=== PATIENT | female | born 1960 | race Caucasian/White ===

== ENCOUNTER 2018-08-19 15:53 | Emergency (ER) | payer SELFPAY ==
[~2018-08-19] VITALS: Ht 167.6 cm; Wt 51.6 kg
[2018-08-19 15:58] VITALS: BP 182/88; PULSE 62; RESP 20; Ht 167.6 cm; Wt 51.6 kg
[2018-08-19] MEDS ORDERED: predniSONE 20 MG TAB PO ONE (18:30)
[2018-08-19] MEDS ORDERED: KETOROLAC 30 MG INJ IM STA (18:30)
--- NOTE | 2018-08-19 18:32 | ERD ---
ER Documentation Chief Complaint Chief Complaint Complains of left hip pain radiates to the left leg HPI 58-year-old female with history of lower back pain, presents to the emergency department, complaining of acute exacerbation of the back pain with radiation to the left lower extremity for 5 days. The patient denies any trauma. The pain is dull, constant, worsened by flexion and lateral rotation. The patient has been taking Tylenol with mild improvement of the symptoms. She denies dizziness, weakness, no numbness or tingling. ROS All systems reviewed and are negative except as per history of present illness. Medications Home Meds Active Scripts Ibuprofen* (Motrin*) 400 Mg Tab, 400 MG PO Q8, #15 TAB Prov:LISA HOOKER MD 08/19/18 Baclofen* (Baclofen*) 10 Mg Tablet, 10 MG PO TID, #15 TAB Prov:LISA HOOKER MD 08/19/18 Prednisone* (Prednisone*) 20 Mg Tab, 60 MG PO DAILY for 4 Days, TAB Prov:LISA HOOKER MD 08/19/18 Allergies Allergies: Coded Allergies: No Known Allergy (Unverified , 08/19/18) FmHx Family History: diabetes; No coronary disease Physical Exam Vitals Vital Signs Date Temp Pulse Resp B/P (MAP) Pulse Ox O2 O2 Flow FiO2 Time Delivery Rate 08/19/18 98.3 62 20 182/88 98 15:58 (119) Physical Exam Const: No acute distress Head: Atraumatic Eyes: Normal Conjunctiva ENT: Normal External Ears, Nose and Mouth. Neck: Full range of motion. No meningismus. Resp: Clear to auscultation bilaterally Cardio: Regular rate and rhythm, no murmurs Abd: Soft, non tender, non distended. Normal bowel sounds Skin: No petechiae or rashes Back: Normal inspection, no vertebral tenderness, bilateral lumbar muscle spasm. Decreased range of motion for lateral rotation and flexion due to pain. Ext: No cyanosis, or edema Neur: Awake and alert Psych: Normal Mood and Affect Results 24 hrs Laboratory Tests Test 08/19/18 18:49 Bedside Urine pH (LAB) 6.5 Bedside Urine Protein (LAB) Negative Bedside Urine Glucose (UA) Negative Bedside Urine Ketones (LAB) Negative Bedside Urine Blood Trace-intact Bedside Urine Nitrite (LAB) Negative Bedside Urine Leukocyte Esterase (L Negative Current Medications Medications Dose Sig/Seb Start Time Status Last (Trade) Ordered Route PRN Stop Time Admin Dose Reason Admin Ketorolac 30 mg ONCE STAT 08/19/18 DC 08/19/18 Tromethamine IM 18:30 08/19/18 18:56 (Toradol) 18:48 Prednisone 40 mg ONCE ONCE 08/19/18 DC 08/19/18 (Prednisone) PO 18:30 08/19/18 18:56 18:48 DIAGNOSTIC IMAGING REPORT Patient: AMY JARRETT : 1960 Age: 58 Sex: F MR #: [id number] DOS: 08/19/181952 Ordering MD: LISA HOOKER MD Location: [facility] Room/Bed: PROCEDURE: XR Lumbar Spine. CLINICAL INDICATION: Low back pain. Sciatica TECHNIQUE: AP, lateral and cone-down lateral views of the lumbar spine were obtained. 3 images. COMPARISON: None. FINDINGS: There may be very slight anterior subluxation of L5 on S1. Bony alignment is otherwise normal. Vertebral body heights are maintained. No fractures are identified. The disc spaces are maintained. The posterior elements are grossly intact. There are no visible focal soft tissue abnormalities. IMPRESSION: 1. Slight grade 1 anterior subluxation of L5 on S1, probably degenerative in nature. Otherwise unremarkable lumbar spine. RPTAT:AAJJ Physician Alexey Date Time Electronically viewed and signed by Physician Alexey on 08/19/2018 21:09 Procedures/MDM Differential diagnosis include but not limited to: lumbar sprain/strain, sciatica, herniated disk, UTI less likely pyelo, kidney stone. Neurovascular exam grossly intact. no clinical findings suggestive of acute infectious process, no acute deformity, no edema, no rashes. Physical examination and clinical presentation consistent most likely with acute on chronic back pain with sciatica. During the ED course the patient received treatment with Toradol IM presenting overall improvement of the symptoms. Results and clinical impression discussed with the patient who agrees with management. The patient is stable to be treated outpatient and will be discharged home with recommendations and close monitoring The patient was instructed to follow up with the primary care provider in the next 48h. If symptoms persist, worsen or new symptoms develop, then patient should return to the ED immediately. Instructions explained and given to patient with acknowledgment and demonstrated understanding. Disclaimer: Inadvertent spelling and grammatical errors are likely due to EHR/dictation software use and do not reflect on the overall quality of patient care. Also, please note that the electronic time recorded on this note does not necessarily reflect the actual time of the patient encounter. Departure Diagnosis: Primary Impression: Low back pain Additional Impression: Right sciatic nerve pain Condition: Stable Additional Instructions: Muchas sol por [facility] para mendoza servicio. Esperamos que en mendoza visita a la flor de emergencia mendoza problema medico haya sido solucionado y que se sienta mucho mejor. Para estar seguros que mednoza mejoria sigue en proceso, le pedimos el favor de hacer job raheel de seguimiento medico con mendoza doctor primario en los proximos 2-4 archer. Lleve con usted estos documentos y las medicinas recetadas. Si yessy sintomas empeoran, NO SE ESPERE, por favor regrese a flor de emergencia INMEDIATAMENTE. En moises que usted no tenga un mdico de atencin primaria: Llame al mdico o clnica comunitaria de referencia que aparece abajo naeem las horas de consultorio para hacer job raheel para que le vean. CLINICAS: [facility] [phone] [facility] [phone] [facility] [phone] [facility] [phone] [place] [phone] [facility]. [phone] LISA ALVES MD Aug 19, 2018 18:32
[2018-08-19] MEDS ORDERED: PRED20TA PO (19:52)
[2018-08-19] MEDS ORDERED: BACL10TA PO (19:52)
[2018-08-19] MEDS ORDERED: IBUP-1561 PO (19:52)
== END 2018-08-19 21:20 | disposition home or self-care (01) ==
LOC: FTE 15:53
DX: M54.41 Lumbago with sciatica, right side (principal)
CPT/HCPCS: 72100; 81003; 96372; 99284; J1885; J7512